=== PATIENT | male | born 1975 | race Caucasian/White ===

== ENCOUNTER → 2025-05-29 | Outpatient (CLI) | payer OTHER | LOC: M SLEEP 20:00 | PROVIDERS: ATTEND Nurse Practitioner Family | DX: R06.83 Snoring (principal) ==

== ENCOUNTER 2025-07-02 17:18 | Emergency (ER) | payer OTHER ==
[~2025-07-02] VITALS: Ht 182.9 cm; Wt 96.4 kg
[2025-07-02] MEDS ORDERED: THERTAB52 PO (17:28)
[2025-07-02] MEDS: ACETAMINOPHEN 500 MG TAB PO ONE (19:08)
[2025-07-02 19:11] VITALS: BP 147/93; TEMP 97.3; O2SAT 95
== END 2025-07-02 19:24 | disposition home or self-care (01) ==
LOC: M ED 17:18
DX: S53.402A Unspecified sprain of left elbow, initial encounter (principal); M25.722 Osteophyte, left elbow; X58.XXXA Exposure to other specified factors, initial encounter; R22.32 Localized swelling, mass and lump, left upper limb; F43.10 Post-traumatic stress disorder, unspecified; M54.50 Low back pain, unspecified; Z88.8 Allergy status to other drugs, medicaments and biological substances; Z79.899 Other long term (current) drug therapy; Y92.89 Other specified places as the place of occurrence of the external cause; Y93.89 Activity, other specified; Y99.0 Civilian activity done for income or pay